=== PATIENT | female | born 1990 | race Caucasian/White ===

== ENCOUNTER 2016-04-14 17:19 | Emergency (ER) | payer MEDICARE, OTHER ==
--- NOTE | 2016-04-14 18:27 | ED ---
Abdominal Pain HPI - General Chief Complaint: Abdominal Pain Stated Complaint: constipation Time Seen by Provider: 04/14/16 18:06 Source: family, RN notes reviewed Mode of arrival: wheelchair Limitations: language barrier, altered mental status, physical limitation - History of Present Illness Initial Comments: Patient's 26-year-old female presents to the emergency room for evaluation of abdominal pain. Patient is a history cerebral palsy. Patient is wheelchair bound and is nonverbal. Patient's father is present with patient. Patient's father states the patient has not had a bowel movement in 5 or more days. Patient's father states the patient appears to be in pain due to not having a bowel movement. Patient's father states the patient does have a history of constipation. Patient's father states he wants to make sure that patient is not constipated. Patient's father denies any fevers. Patient's father states patient is still urinating normally. Patient's father denies any history of bowel obstructions. - Related Data Home Medications Medication Instructions Recorded Confirmed carBAMazepine [TEGretol] 15 ml PO BID 09/08/13 04/14/16 carBAMazepine [TEGretol Susp] 10 ml PO QAM 04/14/16 04/14/16 cloNIDine HCL [Catapres] 0.2 mg PEG/G-TUBE HS 04/14/16 04/14/16 risperiDONE [RisperDAL] 0.5 mg PEG/G-TUBE BID 04/14/16 04/14/16 Allergies Allergy/AdvReac Type Severity Reaction Status Date / Time No Known Allergies Allergy Verified 04/14/16 18:58 Review of Systems ROS Statement: Those systems with pertinent positive or pertinent negative responses have been documented in the HPI. ROS Other: All systems not noted in ROS Statement are negative. Past Medical History Past Medical History: Seizure Disorder Additional Past Medical History / Comment(s): cerebral palsy History of Any Multi-Drug Resistant Organisms: None Reported Additional Past Surgical History / Comment(s): Bilateral AV shunt, peg tube Past Psychological History: No Psychological Hx Reported Smoking Status: Never smoker Past Alcohol Use History: None Reported Past Drug Use History: None Reported General Exam - General Exam Comments Initial Comments: Sitting in exam room, no acute distress. Limitations: language barrier, altered mental status, physical limitation General appearance: alert Head exam: Present: atraumatic, normocephalic, normal inspection Eye exam: Present: normal appearance ENT exam: Present: normal exam Neck exam: Present: normal inspection Respiratory exam: Present: normal lung sounds bilaterally. Absent: respiratory distress Cardiovascular Exam: Present: normal rhythm, tachycardia, normal heart sounds GI/Abdominal exam: Present: soft, normal bowel sounds. Absent: distended, tenderness, guarding, rebound, rigid Extremities exam: Present: normal inspection Neurological exam: Present: altered Skin exam: Present: warm, dry, intact, normal color. Absent: rash Course Vital Signs 04/14/16 04/14/16 04/14/16 17:51 19:57 20:40 Temperature 97.9 F Pulse Rate 145 H 146 H 146 H Respiratory 22 20 Rate Blood Pressure 164/89 142/88 O2 Sat by Pulse 98 98 Oximetry - Reevaluation(s) Reevaluation #1: 04/14/16 19:40 KUB x-ray significant for constipation. Patient will be given molasses enema. Medical Decision Making - Medical Decision Making Patient is a 26-year-old female with history of cerebral palsy presents to emergency room for constipation. KUB x-ray significant for constipation. Patient was given a molasses enema. Patient had a large bowel movement afterwards. Advised patient's father to return for worsening symptoms. Patient 's father states he understands everything that was discussed with him. Case discussed with Dr. Lynn. - Radiology Data Radiology results: report reviewed, image reviewed Disposition Clinical Impression: Constipated Disposition: HOME SELF-CARE Condition: Good Instructions: Constipation (ED), High Fiber Diet (ED) Additional Instructions: Please follow up with primary care provider in 1-2 days. If any new symptom arises, symptoms worsen or fever develops, return to ER as soon as possible. Referrals: Marjan Chakraborty MD [Primary Care Provider] - 1-2 days Time of Disposition: 20:23
--- NOTE | 2016-04-14 19:05 | XR ---
EXAMINATION TYPE: XR KUB DATE OF EXAM: 04/14/2016 6:40 PM COMPARISON: April 09, 2012 HISTORY: Constipation TECHNIQUE: 2 supine views FINDINGS: Chronic dislocation of the right hip noted; this is unchanged when compared the prior study . Visualized lung bases and pleural spaces are negative. There is marked volume of stool within the rectal vault and distal sigmoid. There is a marked volume of pancolonic stool. Catheters are noted. There are no other definite findings on this supine radiographic examination. It is noted that supine radiography cannot exclude pneumoperitoneum. IMPRESSION: MARKED CONSTIPATION.
[2016-04-14 20:40] VITALS: BP 142/88; PULSE 146; RESP 20; TEMP 97.9
== END 2016-04-14 20:40 | disposition home or self-care (01) ==
LOC: EC 17:19
DX: K59.00 Constipation, unspecified (principal); R41.82 Altered mental status, unspecified; R00.0 Tachycardia, unspecified; G40.909 Epilepsy, unspecified, not intractable, without status epilepticus; Z86.69 Personal history of other diseases of the nervous system and sense organs; Z79.899 Other long term (current) drug therapy
CPT/HCPCS: 74000; 99284

== ENCOUNTER 2016-04-17 11:32 | Emergency (ER) | payer MEDICARE, OTHER ==
[2016-04-17] MEDS ORDERED: ACETAMINOPHEN TAB 325 MG TAB PO STA (12:11)
[2016-04-17] MEDS ORDERED: SODIUM CHLORIDE 0.9% 500 ML IV STA (12:11)
[2016-04-17] MEDS ORDERED: ACETAMINOPHEN TAB 325 MG TAB PEG/G-TUBE STA (12:13)
[2016-04-17 13:09] LABS: Basophils # (A) 0.1 k/uL (0-0.2); Basophils % (A) 1 %; CH 31.6; CHCM 33.3; Eosinophils % (A) 0 %; HCT 40.5 % (34.0-46.0); HDW 2.07; HGB 12.8 gm/dL (11.4-16.0); Luc # (Auto) 0.17; Luc % (Auto) 2; Lymphocytes # (A) 1.2 k/uL (1.0-4.8); Lymphocytes % (A) 13 %; MCH 30.2 pg (25.0-35.0); MCHC 31.7 g/dL (31.0-37.0); MCV 95.2 fL (80.0-100.0); Mean Platelet Volume 7.5; Monocytes # (A) 0.6 k/uL (0-1.0); Monocytes % (A) 6 %; Neutrophils # (A) 7.5 k/uL (1.3-7.7); Neutrophils % (A) 78 %; RBC 4.26 m/uL (3.80-5.40); RDW 12.2 % (11.5-15.5); WBC 9.5 k/uL (3.8-10.6); WBC (Perox) 9.91
--- NOTE | 2016-04-17 13:16 | XR ---
EXAMINATION TYPE: XR chest 2V DATE OF EXAM: 04/17/2016 1:12 PM COMPARISON: NONE INDICATION: Fever TECHNIQUE: Frontal and lateral views of the chest are obtained. FINDINGS: The heart size is normal. The pulmonary vasculature is normal. The lungs are clear. Catheters are present overlying the chest. No change is evident IMPRESSION: 1. No acute pulmonary process.
[2016-04-17 13:21] LABS: ALT 39 U/L (9-52); AST 24 U/L (14-36); Alkaline Phosphatase 134 U/L (38-126); Blood Urea Nitrogen 17 mg/dL (7-17); Calcium 9.5 mg/dL (8.4-10.2); Carbon Dioxide 29 mmol/L (22-30); Chloride 100 mmol/L (98-107); Glucose 140 mg/dL (74-99); Non-African American GFR(MDRD) >60 (>60 ml/min/1.73 sqM); Total Bilirubin 0.4 mg/dL (0.2-1.3); Total Protein 7.4 g/dL (6.3-8.2)
[2016-04-17 13:23] LABS: Anion Gap 17 mmol/L; Sodium 146 mmol/L (137-145)
[2016-04-17] MEDS ORDERED: SODIUM CHLORIDE 0.9% 750 ML IV STA (14:36)
[2016-04-17 15:06] LABS: Appearance,Urine Clear (Clear); Bilirubin,Urine Negative (Negative); Glucose,Urine (UA) Negative (Negative); Ketones,Urine Negative (Negative); Leukocyte Esterase,Urine Negative (Negative); Mucus,Urine Rare /hpf; Nitrite,Urine Negative (Negative); Particle Count 1538; Protein,Urine 1+ (Negative); RBC,Urine 2 /hpf (0-5); Specific Gravity,Urine 1.024 (1.001-1.035); Squamous Epithelial Cell,Urine <1 /hpf (0-4); UA Billing (MACRO vs. MICRO) MICRO; WBC,Urine 1 /hpf (0-5)
--- NOTE | 2016-04-17 15:50 | ED ---
Fever HPI - General Chief Complaint: Fever Stated Complaint: fever Time Seen by Provider: 04/17/16 11:50 Source: family Mode of arrival: wheelchair Limitations: physical limitation - History of Present Illness Initial Comments: This patient is a 26-year-old woman with history of cerebral palsy, brought by her family to be evaluated for fever for past couple days and will status change. The patient's father gives the history, as the patient does not speak. He states that she has had a temperature going on for the past night. In addition she has been less active than usual. The patient had been seen here 04/14 and was felt to have some constipation, was given enema did have one bowel movement. MD Complaint: fever, malaise -: days(s) Associated Symptoms: diarrhea Treatments Prior to Arrival: Acetaminophen - Related Data Home Medications Medication Instructions Recorded Confirmed carBAMazepine [TEGretol] 300 ml PO BID@1600,2200 09/08/13 04/17/16 carBAMazepine [TEGretol Susp] 200 mg PO QAM 04/14/16 04/17/16 cloNIDine HCL [Catapres] 0.2 mg PEG/G-TUBE HS 04/14/16 04/17/16 risperiDONE [RisperDAL] 0.5 mg PEG/G-TUBE BID 04/14/16 04/17/16 Allergies Allergy/AdvReac Type Severity Reaction Status Date / Time No Known Allergies Allergy Verified 04/17/16 14:04 Review of Systems ROS Statement: Those systems with pertinent positive or pertinent negative responses have been documented in the HPI. ROS Other: All systems not noted in ROS Statement are negative. Limitations: ROS unobtainable due to patients medical condition Constitutional: Reports: fever ENT: Reports: other ("Frothing at the mouth") Respiratory: Denies: dyspnea Cardiovascular: Denies: syncope Gastrointestinal: Reports: constipation. Denies: vomiting Skin: Denies: rash Past Medical History Past Medical History: Seizure Disorder Additional Past Medical History / Comment(s): cerebral palsy History of Any Multi-Drug Resistant Organisms: None Reported Additional Past Surgical History / Comment(s): Bilateral AV shunt, peg tube Past Psychological History: No Psychological Hx Reported Smoking Status: Never smoker Past Alcohol Use History: None Reported Past Drug Use History: None Reported General Exam Limitations: physical limitation General appearance: alert, cachectic, other (Patient is chronically ill- appearing lady with contractures and with symmetric muscle wasting. She is alert but not able to cooperate with the neurologic exam.) Eye exam: Present: normal appearance. Absent: scleral icterus, conjunctival injection ENT exam: Present: mucous membranes dry Neck exam: Absent: tenderness, meningismus Respiratory exam: Present: normal lung sounds bilaterally, rhonchi. Absent: respiratory distress, wheezes, rales, stridor, accessory muscle use, decreased breath sounds Cardiovascular Exam: Present: normal rhythm, tachycardia, systolic murmur ( Grade 1/6 systolic ejection murmur). Absent: diastolic murmur, rubs, gallop GI/Abdominal exam: Present: soft, rigid, diminished bowel sounds, other (There is a PEG tube in the left upper quadrant.). Absent: tenderness, guarding, rebound Extremities exam: Present: normal capillary refill, other (Lower extremity contractions and symmetric muscle wasting) Back exam: Absent: CVA tenderness (R), CVA tenderness (L) Neurological exam: Present: alert, CN II-XII intact, other (Patient is alert but is non-verbal. Patient not able to cooperate with neurologic exam.). Absent: oriented X3 Skin exam: Present: dry, intact, normal color, other (Skin is hot and dry.). Absent: rash Course Vital Signs 04/17/16 11:35 Temperature 101.6 F H Pulse Rate 133 H Respiratory 18 Rate Blood Pressure 105/71 O2 Sat by Pulse 96 Oximetry Medical Decision Making - Medical Decision Making Patient is a 26-year-old woman with history of cerebral palsy brought to be evaluated for fever and some apparent mental status changes. The workup here does not reveal source of infection. Patient must have a shunt assessment, and I discussed this with patient's father who requested that they be transferred to [facility] where she has previously been seen by Dr. Aureliano Ann, neurosurgeon. Discussed this with the emergency physician there Dr. Willson, who will accept transfer. The patient did receive dose of Rocephin on arrival, as well as IV fluids. - Lab Data Result diagrams: 04/17/16 12:48 04/17/16 12:48 Lab Results 04/17/16 04/17/16 04/17/16 Range/Units 12:48 12:48 12:48 WBC 9.5 (3.8-10.6) k/uL RBC 4.26 (3.80-5.40) m/uL Hgb 12.8 (11.4-16.0) gm/dL Hct 40.5 (34.0-46.0) % MCV 95.2 (80.0-100.0) fL MCH 30.2 (25.0-35.0) pg MCHC 31.7 (31.0-37.0) g/dL RDW 12.2 (11.5-15.5) % Plt Count 521 H (150-450) k/uL Neutrophils % 78 % Lymphocytes % 13 % Monocytes % 6 % Eosinophils % 0 % Basophils % 1 % Neutrophils # 7.5 (1.3-7.7) k/uL Lymphocytes # 1.2 (1.0-4.8) k/uL Monocytes # 0.6 (0-1.0) k/uL Eosinophils # 0.0 (0-0.7) k/uL Basophils # 0.1 (0-0.2) k/uL Sodium 146 H (137-145) mmol/L Potassium 4.0 (3.5-5.1) mmol/L Chloride 100 (98-107) mmol/L Carbon Dioxide 29 (22-30) mmol/L Anion Gap 17 mmol/L BUN 17 (7-17) mg/dL Creatinine 0.61 (0.52-1.04) mg/dL Est GFR (MDRD) Af Amer >60 (>60 ml/min/1.73 sqM) Est GFR (MDRD) Non-Af >60 (>60 ml/min/1.73 sqM) Glucose 140 H (74-99) mg/dL Plasma Lactic Acid Oscar (0.7-2.0) mmol/L Calcium 9.5 (8.4-10.2) mg/dL Total Bilirubin 0.4 (0.2-1.3) mg/dL AST 24 (14-36) U/L ALT 39 (9-52) U/L Alkaline Phosphatase 134 H (38-126) U/L Total Protein 7.4 (6.3-8.2) g/dL Albumin 3.8 (3.5-5.0) g/dL Urine Color Urine Appearance (Clear) Urine pH (5.0-8.0) Ur Specific [place] (1.001-1.035) Urine Protein (Negative) Urine Glucose (UA) (Negative) Urine Ketones (Negative) Urine Blood (Negative) Urine Nitrate (Negative) Urine Bilirubin (Negative) Urine Urobilinogen (<2.0) mg/dL Ur Leukocyte Esterase (Negative) Urine RBC (0-5) /hpf Urine WBC (0-5) /hpf Ur Squamous Epith Cells (0-4) /hpf Urine Mucus (None) /hpf Influenza Type A RNA Not Detected (Not Detectd) Influenza Type B (PCR) Not Detected (Not Detectd) 04/17/16 04/17/16 Range/Units 12:48 14:45 WBC (3.8-10.6) k/uL RBC (3.80-5.40) m/uL Hgb (11.4-16.0) gm/dL Hct (34.0-46.0) % MCV (80.0-100.0) fL MCH (25.0-35.0) pg MCHC (31.0-37.0) g/dL RDW (11.5-15.5) % Plt Count (150-450) k/uL Neutrophils % % Lymphocytes % % Monocytes % % Eosinophils % % Basophils % % Neutrophils # (1.3-7.7) k/uL Lymphocytes # (1.0-4.8) k/uL Monocytes # (0-1.0) k/uL Eosinophils # (0-0.7) k/uL Basophils # (0-0.2) k/uL Sodium (137-145) mmol/L Potassium (3.5-5.1) mmol/L Chloride (98-107) mmol/L Carbon Dioxide (22-30) mmol/L Anion Gap mmol/L BUN (7-17) mg/dL Creatinine (0.52-1.04) mg/dL Est GFR (MDRD) Af Amer (>60 ml/min/1.73 sqM) Est GFR (MDRD) Non-Af (>60 ml/min/1.73 sqM) Glucose (74-99) mg/dL Plasma Lactic Acid Oscar 2.2 H* (0.7-2.0) mmol/L Calcium (8.4-10.2) mg/dL Total Bilirubin (0.2-1.3) mg/dL AST (14-36) U/L ALT (9-52) U/L Alkaline Phosphatase (38-126) U/L Total Protein (6.3-8.2) g/dL Albumin (3.5-5.0) g/dL Urine Color Yellow Urine Appearance Clear (Clear) Urine pH 8.0 (5.0-8.0) Ur Specific [place] 1.024 (1.001-1.035) Urine Protein 1+ H (Negative) Urine Glucose (UA) Negative (Negative) Urine Ketones Negative (Negative) Urine Blood Negative (Negative) Urine Nitrate Negative (Negative) Urine Bilirubin Negative (Negative) Urine Urobilinogen 3.0 (<2.0) mg/dL Ur Leukocyte Esterase Negative (Negative) Urine RBC 2 (0-5) /hpf Urine WBC 1 (0-5) /hpf Ur Squamous Epith Cells <1 (0-4) /hpf Urine Mucus Rare H (None) /hpf Influenza Type A RNA (Not Detectd) Influenza Type B (PCR) (Not Detectd) Disposition Clinical Impression: Fever, Mental status change Disposition: OTHER INSTITUTION NOT DEFINED Condition: Poor Referrals: Marjan Chakraborty MD [Primary Care Provider] - 1-2 days - Out of Hospital Transfer - Req. Specs Out of Hospital Transfer - Requested Specifics: Other Emergency Center
[2016-04-17 16:14] VITALS: BP 117/84; PULSE 136; RESP 20; TEMP 98.9
== END 2016-04-17 16:55 | disposition short-term general hospital (02) ==
LOC: EC 11:32
DX: R50.9 Fever, unspecified (principal); R41.82 Altered mental status, unspecified; R19.7 Diarrhea, unspecified; R53.81 Other malaise; G40.909 Epilepsy, unspecified, not intractable, without status epilepticus; Z86.69 Personal history of other diseases of the nervous system and sense organs; Z79.899 Other long term (current) drug therapy; Z95.828 Presence of other vascular implants and grafts
CPT/HCPCS: 99284; 96365; 96361 ×3; 36415; 80053; 83605; 85025; 81001; 87040; 87086; 87502; 71020; J0696

== ENCOUNTER 2016-08-04 07:37 | Emergency (ER) | payer MEDICARE, OTHER ==
[2016-08-04 07:42] VITALS: BP 112/71; RESP 20
--- NOTE | 2016-08-04 08:42 | XR ---
EXAMINATION TYPE: XR chest 2V DATE OF EXAM: 08/04/2016 HISTORY: cough. REFERENCE: Previous study dated 04/17/2016. FINDINGS: There is a severe rotoscoliosis involving the thoracic spine. There is shunt tubing project ing over the right side of the chest. The lungs are clear. Pleural spaces are clear. Heart size upper limits of normal. IMPRESSION: NO ACUTE INTRATHORACIC ABNORMALITY.
--- NOTE | 2016-08-04 08:57 | ED ---
General Adult HPI - General Chief complaint: Upper Respiratory Infection Stated complaint: SINUS Time Seen by Provider: 08/04/16 08:15 Source: patient, RN notes reviewed, old records reviewed Mode of arrival: wheelchair - History of Present Illness Initial comments: Patient 26-year-old female who has significant past medical history for cerebral palsy, presenting with her father with chief complaint of upper respiratory symptoms over the last 3 days. States that she's had increased cough congestion and rhinorrhea. Denies any fever. States he had similar symptoms was prescribed an antibiotic for. States been no nausea or vomiting. States otherwise acting appropriate for herself with no changes. Does admit to recent [employer] shunt replacement approximately a month ago down through [facility]. Denies any other complaints.Patient denies any recent fever, chills, shortness of breath, chest pain, back pain, nausea or vomiting, hematuria, constipation or diarrhea, or any other complaints. - Related Data Home Medications Medication Instructions Recorded Confirmed carBAMazepine [TEGretol] 300 ml PO BID@1600,2200 09/08/13 08/04/16 carBAMazepine [TEGretol Susp] 200 mg PO QAM 04/14/16 08/04/16 cloNIDine HCL [Catapres] 0.2 mg PEG/G-TUBE HS 04/14/16 08/04/16 risperiDONE [RisperDAL] 0.5 mg PEG/G-TUBE BID 04/14/16 08/04/16 Previous Rx's Medication Instructions Recorded Amoxicillin/Potassium Clav 1 each PO Q12HR #20 tab 08/04/16 [Augmentin 875-125 Tablet] Allergies Allergy/AdvReac Type Severity Reaction Status Date / Time No Known Allergies Allergy Verified 08/04/16 08:26 Review of Systems ROS Statement: Those systems with pertinent positive or pertinent negative responses have been documented in the HPI. ROS Other: All systems not noted in ROS Statement are negative. Past Medical History Past Medical History: Seizure Disorder Additional Past Medical History / Comment(s): cerebral palsy History of Any Multi-Drug Resistant Organisms: None Reported Additional Past Surgical History / Comment(s): Bilateral AV shunt, peg tube Past Psychological History: No Psychological Hx Reported Smoking Status: Never smoker Past Alcohol Use History: None Reported Past Drug Use History: None Reported General Exam - General Exam Comments Initial Comments: General: The patient is awake and alert, in no distress, and does not appear acutely ill. Eye: Pupils are equal, round and reactive to light, extra-ocular movements are intact. No nystagmus. There is normal conjunctiva bilaterally. No signs of icterus. Ears, nose, mouth and throat: There are moist mucous membranes and no oral lesions. Clear rhinorrhea bilaterally. Neck: The neck is supple, there is no tenderness or JVD. Cardiovascular: There is a regular rate and rhythm. No murmur, rub or gallop is appreciated. Respiratory: Lungs are clear to auscultation, respirations are non-labored, breath sounds are equal. No wheezes, stridor, rales, or rhonchi. Gastrointestinal: Abdomen soft on palpation. No apparent tenderness. Musculoskeletal: Normal ROM, no tenderness. Strength 5/5. Sensation intact. Pulses equal bilaterally 2+. Neurological: Patient at baseline per her father at bedside. There are no obvious motor or sensory deficits. Skin: Skin is warm and dry and no rashes or lesions are noted. Course Vital Signs 08/04/16 08/04/16 07:38 08:05 Temperature 97.7 F Pulse Rate 129 H 128 H Respiratory 20 Rate Blood Pressure 112/71 O2 Sat by Pulse 96 100 Oximetry Medical Decision Making - Medical Decision Making Case discussed in detail with attending physician Dr. Nichols. Patient will be covered with antibiotics of Augmentin cover for sinus infection. Chest x-ray is negative for any evidence of pneumonia. Advised close follow-up with family doctor and [facility]. Advised to return if any symptoms increase or worsen or for any other concerns. Disposition Clinical Impression: Acute sinusitis Disposition: HOME SELF-CARE Condition: Good Instructions: Sinusitis (ED) Additional Instructions: Please use medication as discussed. Please follow-up with family doctor in the next 2 days. Please return to emergency room if the symptoms increase or worsen or for any other concerns. Prescriptions: Amoxicillin/Potassium Clav [Augmentin 875-125 Tablet] 1 each PO Q12HR #20 tab Referrals: Marjan Chakraborty MD [Primary Care Provider] - 1-2 days Time of Disposition: 08:49
[2016-08-04 09:12] VITALS: PULSE 127; TEMP 99
== END 2016-08-04 09:12 | disposition home or self-care (01) ==
LOC: EC 07:37
DX: J01.90 Acute sinusitis, unspecified (principal); R05 Cough; G40.909 Epilepsy, unspecified, not intractable, without status epilepticus; Z79.899 Other long term (current) drug therapy
CPT/HCPCS: 71020; 99284

== ENCOUNTER → 2016-10-18 | Outpatient (CLI) | payer MEDICARE, OTHER | END | disposition home or self-care (01) | LOC: LABWHC1 07:53 | PROVIDERS: ATTEND Psychiatry & Neurology Neurology | DX: G40.209 Localization-related (focal) (partial) symptomatic epilepsy and epileptic syndromes with complex partial seizures, not intractable, without status epilepticus (principal) | CPT/HCPCS: 36415; 80156 ==

== ENCOUNTER → 2018-02-15 | Outpatient (CLI) | payer MEDICARE, OTHER ==
[2018-02-15 08:45] LABS: Basophils # (A) 0.1 k/uL (0-0.2); Basophils % (A) 1 %; Eosinophils # (A) 0.2 k/uL (0-0.7); Eosinophils % (A) 3 %; HCT 51.1 % (34.0-46.0); HGB 16.2 gm/dL (11.4-16.0); Lymphocytes # (A) 1.5 k/uL (1.0-4.8); Lymphocytes % (A) 20 %; MCHC 31.8 g/dL (31.0-37.0); MCV 97.5 fL (80.0-100.0); Mean Platelet Volume 6.5; Monocytes # (A) 0.7 k/uL (0-1.0); Monocytes % (A) 9 %; Neutrophils # (A) 4.5 k/uL (1.3-7.7); Neutrophils % (A) 62 %; Platelet Count 381 k/uL (150-450); RBC 5.24 m/uL (3.80-5.40); RDW 12.4 % (11.5-15.5); WBC 7.2 k/uL (3.8-10.6)
[2018-02-15 15:44] LABS: ALT 40 U/L (8-44); AST 29 U/L (13-35); Alkaline Phosphatase 160 U/L (41-126); Bilirubin, Conjugated <0.20 mg/dL (0.20-0.40); Globulin 2.3 g/dL (2.1-3.7); Total Bilirubin 0.1 mg/dL (0.3-1.2); Total Protein 6.9 g/dL (6.2-8.2)
[2018-02-15 16:26] LABS: Carbamazepine (Tegretol) 6.1 ug/mL (4.0-12.0)
[2018-02-15 17:28] LABS: Hemoglobin A1C 5.8 % (4.0-6.0)
== END | disposition home or self-care (01) ==
LOC: LABWHC1 07:18 → EEVIPCON 07:18
PROVIDERS: ATTEND Nurse Practitioner Family
DX: G40.209 Localization-related (focal) (partial) symptomatic epilepsy and epileptic syndromes with complex partial seizures, not intractable, without status epilepticus (principal); T50.905A Adverse effect of unspecified drugs, medicaments and biological substances, initial encounter
CPT/HCPCS: 36415; 80076; 80156; 83036; 84146; 85025

== ENCOUNTER 2020-02-21 18:18 | Emergency (ER) | payer MEDICARE, OTHER ==
[2020-02-21 18:30] VITALS: BP 133/98; PULSE 73; RESP 18; TEMP 98.4
--- NOTE | 2020-02-21 19:25 | ED ---
Abdominal Pain HPI - General Chief Complaint: Abdominal Pain Stated Complaint: bowel problems Time Seen by Provider: 02/21/20 18:38 Source: family Mode of arrival: wheelchair Limitations: altered mental status, physical limitation - History of Present Illness Initial Comments: Patient is a 30-year-old female, history of cerebral palsy, non-verbal, prese nting to the emergency department with her father with complaints of possible constipation. The father states that patient has been agitated over the past week, moaning a little bit more which usually means she is uncomfortable. Father states she has had issues with constipation in the past, her last normal bowel movement was about one week ago. She has been having very small, soft movements over the past week. There has been no fevers, no vomiting. Father states that she acted the same way last time she had constipation. They had tried stool softeners at home without improvement. She does have a PEG tube. There are no further complaints at this time. - Related Data Home Medications Medication Instructions Recorded Confirmed carBAMazepine [TEGretol] 300 ml PEG/G-TUBE BID@1600,2200 09/08/13 02/21/20 carBAMazepine [TEGretol Susp] 200 mg PEG/G-TUBE QAM 04/14/16 02/21/20 risperiDONE [RisperDAL] 0.16 - 0.5 mg PEG/G-TUBE DAILY 04/14/16 02/21/20 ALPRAZolam [Xanax] 0.125 mg PEG/G-TUBE BID PRN 02/21/20 02/21/20 cloNIDine HCL 0.3 mg PEG/G-TUBE HS 02/21/20 02/21/20 Allergies Allergy/AdvReac Type Severity Reaction Status Date / Time No Known Allergies Allergy Verified 02/21/20 19:22 Review of Systems ROS Statement: Those systems with pertinent positive or pertinent negative responses have been documented in the HPI. ROS Other: All systems not noted in ROS Statement are negative. Past Medical History Past Medical History: Seizure Disorder Additional Past Medical History / Comment(s): cerebral palsy History of Any Multi-Drug Resistant Organisms: None Reported Additional Past Surgical History / Comment(s): Bilateral AV shunt, peg tube Past Psychological History: No Psychological Hx Reported Past Alcohol Use History: None Reported Past Drug Use History: None Reported General Exam - General Exam Comments Initial Comments: GENERAL: Patient is well-developed and well-nourished. Patient is nontoxic and in no acute distress. Patient is nonverbal. HEAD: Atraumatic, normocephalic. EYES: Pupils equal round and reactive to light, extraocular movements intact, sclera anicteric, conjunctiva are normal. Eyelids were unremarkable. ENT: TMs normal, nares patent, oropharynx clear without exudates. Moist mucous membranes. NECK: Normal range of motion, supple without lymphadenopathy or JVD. LUNGS: Unlabored respirations. Breath sounds clear to auscultation bilaterally and equal. No wheezes rales or rhonchi. HEART: Regular rate and rhythm without murmurs, rubs or gallops. ABDOMEN: Guarding, soft, nontender, normoactive bowel sounds. No guarding, no rebound. No masses appreciated. : Deferred MUSCULOSKELETAL: History of cerebral palsy, muscle contractures, she is at baseline. No pitting or edema. No clubbing or cyanosis. NEUROLOGICAL: Patient history cerebral palsy, she is nonverbal at baseline. Per father, she is at her normal baseline. PSYCH: Normal mood, normal affect. SKIN: Warm, Dry, normal turgor, no rashes or lesions noted. Limitations: altered mental status, physical limitation Course Vital Signs 02/21/20 18:26 Temperature 98.4 F Pulse Rate 73 Respiratory 18 Rate Blood Pressure 133/98 O2 Sat by Pulse 90 L Oximetry Medical Decision Making - Medical Decision Making Patient is a 30-year-old female with history of cerebral palsy, presenting with her father with complaints of constipation. Patient has normal vitals, afebrile. No vomiting. KUB shows constipation and rectal fecal impaction. Patient was given an enema, she's been having large bowel movements in the ER, her father states that she seems more calm. She is stable for discharge. Other sick continue with stool softeners as well as a laxative until she has a normal bowel movement. He is in agreement this plan of care. She is stable for discharge. Return parameters were discussed with the father and he verbalized understanding. Case discussed with Dr. Mora. Disposition Clinical Impression: Constipation Disposition: HOME SELF-CARE Condition: Stable Instructions (If sedation given, give patient instructions): Constipation (ED) Additional Instructions: Please return to the Emergency Department if symptoms worsen or any other concerns. Continue with stool softener such as MiraLAX daily, may take an additional laxative tomorrow. Follow-up with regular doctor. Is patient prescribed a controlled substance at d/c from ED?: No Referrals: Marjan Chakraborty MD [Primary Care Provider] - 1-2 days
--- NOTE | 2020-02-21 19:43 | XR ---
EXAMINATION TYPE: XR KUB DATE OF EXAM: 02/21/2020 COMPARISON: 04/14/2016 HISTORY: Constipation TECHNIQUE: 2 views supine FINDINGS: There is moderate retained fecal material throughout the colon. There is no evidence of abby e air. Lung bases are clear of consolidation. There is right side ventriculoperitoneal shunt catheter . 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 There are no pathologic calcifications over the kid neys. There is lateral dislocation of the right femoral head. IMPRESSION: Constipation and rectal fecal impaction unchanged.
== END 2020-02-21 21:57 | disposition home or self-care (01) ==
LOC: EC 18:18
DX: K59.00 Constipation, unspecified (principal); G80.9 Cerebral palsy, unspecified; M62.40 Contracture of muscle, unspecified site; G40.909 Epilepsy, unspecified, not intractable, without status epilepticus; Z79.899 Other long term (current) drug therapy; Z95.828 Presence of other vascular implants and grafts
CPT/HCPCS: 74018; 99284

== ENCOUNTER → 2020-07-17 | Outpatient (CLI) | payer MEDICARE, OTHER ==
[2020-07-21 07:40] VITALS: BMI 16.9
== END ==
LOC: DBWHC3 08:42
PROVIDERS: ATTEND Family Medicine
DX: Z78.9 Other specified health status (principal)
CPT/HCPCS: 97802

== ENCOUNTER 2020-08-04 09:03 | Emergency (ER) | payer MEDICARE, OTHER ==
[2020-08-04 09:17] VITALS: RESP 18; TEMP 97
--- NOTE | 2020-08-04 10:15 | ED ---
Abdominal Pain HPI - General Chief Complaint: Abdominal Pain Stated Complaint: constipation Time Seen by Provider: 08/04/20 09:37 Source: patient, family, RN notes reviewed Mode of arrival: wheelchair Limitations: altered mental status - History of Present Illness Initial Comments: This is a 30-year-old female presents emergency Department with caregiver chief complaint of constipation, abdominal issues. Patient's said by 2 feeds, they did have recent switch 2 views which were initially helping with her bowel movements states that she's not on and over one week. They noticed that she can't more irritable when she has issues with constipation. He also noticed some irritation around the site of her PEG tube. He states that last time she was placed on antibiotics and this cleared up. They're also requesting the patient to have antibodies is requesting vaccinating her there are multiple contacts to home that were positive. - Related Data Home Medications Medication Instructions Recorded Confirmed carBAMazepine [TEGretol] 300 ml PEG/G-TUBE BID@1600,2200 09/08/13 08/04/20 carBAMazepine [TEGretol Susp] 200 mg PEG/G-TUBE QAM 04/14/16 08/04/20 risperiDONE [RisperDAL] 0.16 - 0.5 mg PEG/G-TUBE DAILY 04/14/16 08/04/20 ALPRAZolam [Xanax] 0.125 mg PEG/G-TUBE BID PRN 02/21/20 08/04/20 cloNIDine HCL [Catapres] 0.3 mg PEG/G-TUBE HS 02/21/20 08/04/20 Previous Rx's Medication Instructions Recorded Cephalexin [Keflex Susp] 500 mg PO Q8HR #300 ml 08/04/20 Nystatin 100,000 Unit/gm Oint 1 applic TOPICAL TID #15 gm 08/04/20 [Mycostatin Oint] Allergies Allergy/AdvReac Type Severity Reaction Status Date / Time No Known Allergies Allergy Verified 08/04/20 10:22 Review of Systems ROS Statement: Those systems with pertinent positive or pertinent negative responses have been documented in the HPI. ROS Other: All systems not noted in ROS Statement are negative. Past Medical History Past Medical History: Seizure Disorder Additional Past Medical History / Comment(s): cerebral palsy History of Any Multi-Drug Resistant Organisms: None Reported Additional Past Surgical History / Comment(s): Bilateral AV shunt, peg tube Past Psychological History: No Psychological Hx Reported Smoking Status: Never smoker Past Alcohol Use History: None Reported Past Drug Use History: None Reported General Exam Limitations: altered mental status General appearance: alert, in no apparent distress Head exam: Present: atraumatic, normocephalic, normal inspection Respiratory exam: Present: normal lung sounds bilaterally. Absent: respiratory distress, wheezes, rales, rhonchi, stridor Cardiovascular Exam: Present: regular rate, normal rhythm, normal heart sounds. Absent: systolic murmur, diastolic murmur, rubs, gallop, clicks GI/Abdominal exam: Present: soft, rigid, normal bowel sounds. Absent: distended, tenderness, guarding, rebound Neurological exam: Present: alert Course Vital Signs 08/04/20 08/04/20 09:11 10:16 Temperature 97.0 F L Pulse Rate 54 L Respiratory 18 18 Rate Blood Pressure 125/80 O2 Sat by Pulse 99 Oximetry Medical Decision Making - Medical Decision Making 30-year-old presented for constipation x-ray does reveal evidence constipation, was given. Family requested COVID-19 antibiotic testing which was performed. Patient also has some skin irritation may related to bacterial versus fungal around her PEG tube site. Patient placed on antibiotics, topical antifungals and will have close follow-up. - Lab Data Result diagrams: 08/04/20 10:36 08/04/20 10:36 Lab Results 08/04/20 08/04/20 08/04/20 Range/Units 10:36 10:36 10:36 WBC 8.5 (3.8-10.6) k/uL RBC 4.84 (3.80-5.40) m/uL Hgb 15.7 (11.4-16.0) gm/dL Hct 46.5 H (34.0-46.0) % MCV 96.0 (80.0-100.0) fL MCH 32.5 (25.0-35.0) pg MCHC 33.8 (31.0-37.0) g/dL RDW 12.1 (11.5-15.5) % Plt Count 386 (150-450) k/uL MPV 7.1 Neutrophils % 62 % Lymphocytes % 22 % Monocytes % 9 % Eosinophils % 4 % Basophils % 1 % Neutrophils # 5.2 (1.3-7.7) k/uL Lymphocytes # 1.8 (1.0-4.8) k/uL Monocytes # 0.7 (0-1.0) k/uL Eosinophils # 0.3 (0-0.7) k/uL Basophils # 0.1 (0-0.2) k/uL Sodium 142 (137-145) mmol/L Potassium 5.4 H (3.5-5.1) mmol/L Chloride 100 (98-107) mmol/L Carbon Dioxide 36 H (22-30) mmol/L Anion Gap 6 mmol/L BUN 29 H (7-17) mg/dL Creatinine 0.61 (0.52-1.04) mg/dL Est GFR (CKD-EPI)AfAm >90 (>60 ml/min/1.73 sqM) Est GFR (CKD-EPI)NonAf >90 (>60 ml/min/1.73 sqM) Glucose 81 (74-99) mg/dL Calcium 9.6 (8.4-10.2) mg/dL Total Bilirubin 0.5 (0.2-1.3) mg/dL AST 42 H (14-36) U/L ALT 32 (4-34) U/L Alkaline Phosphatase 104 (38-126) U/L Total Protein 7.6 (6.3-8.2) g/dL Albumin 4.6 (3.5-5.0) g/dL Lipase 152 (23-300) U/L Coronavirus (PCR) Not Detected (Not Detectd) Disposition Clinical Impression: Constipation, Skin irritation Disposition: HOME SELF-CARE Condition: Stable Instructions (If sedation given, give patient instructions): Constipation (ED) Additional Instructions: Please return to the Emergency Department if symptoms worsen or any other concerns. Prescriptions: Cephalexin [Keflex Susp] 500 mg PO Q8HR #300 ml Nystatin 100,000 Unit/gm Oint [Mycostatin Oint] 1 applic TOPICAL TID #15 gm Is patient prescribed a controlled substance at d/c from ED?: No Referrals: Marjan Chakraborty MD [Primary Care Provider] - 1-2 days Time of Disposition: 13:21
[2020-08-04 10:47] LABS: Basophils # (A) 0.1 k/uL (0-0.2); Basophils % (A) 1 %; Eosinophils # (A) 0.3 k/uL (0-0.7); Eosinophils % (A) 4 %; HCT 46.5 % (34.0-46.0); HGB 15.7 gm/dL (11.4-16.0); Lymphocytes # (A) 1.8 k/uL (1.0-4.8); Lymphocytes % (A) 22 %; MCH 32.5 pg (25.0-35.0); MCHC 33.8 g/dL (31.0-37.0); Mean Platelet Volume 7.1; Monocytes # (A) 0.7 k/uL (0-1.0); Monocytes % (A) 9 %; Neutrophils # (A) 5.2 k/uL (1.3-7.7); Neutrophils % (A) 62 %; Platelet Count 386 k/uL (150-450); RBC 4.84 m/uL (3.80-5.40); RDW 12.1 % (11.5-15.5); WBC 8.5 k/uL (3.8-10.6)
[2020-08-04 11:01] LABS: ALT 32 U/L (4-34); African American GFR (CKD) >90 (>60 ml/min/1.73 sqM); Anion Gap 6 mmol/L; Blood Urea Nitrogen 29 mg/dL (7-17); Calcium 9.6 mg/dL (8.4-10.2); Carbon Dioxide 36 mmol/L (22-30); Chloride 100 mmol/L (98-107); Glucose 81 mg/dL (74-99); Lipase 152 U/L (23-300); Non-African American GFR(CKD) >90 (>60 ml/min/1.73 sqM); Sodium 142 mmol/L (137-145); Total Bilirubin 0.5 mg/dL (0.2-1.3)
[2020-08-04 11:03] LABS: AST 42 U/L (14-36); Albumin 4.6 g/dL (3.5-5.0); Alkaline Phosphatase 104 U/L (38-126); Potassium 5.4 mmol/L (3.5-5.1); Total Protein 7.6 g/dL (6.3-8.2)
--- NOTE | 2020-08-04 11:16 | XR ---
EXAMINATION TYPE: XR KUB DATE OF EXAM: 08/04/2020 COMPARISON: 02/21/2020 HISTORY: Constipation TECHNIQUE: One view abdominal series FINDINGS: Extensive retained fecal debris throughout the colon. Peritoneal dialysis catheter noted. 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 Scoliosis noted. Suggesti on of possible PEG tube. No definite suspicious calcifications. IMPRESSION: 1. Nonspecific abdomen correlate for constipation and possible fecal impaction.
[2020-08-04 13:33] VITALS: BP 124/94
[2020-08-04 13:34] VITALS: PULSE 100
[2020-08-04] MEDS ORDERED: DOCUSATE 283 MG/5 ML ENEMA RECTAL STA ×2 (13:49)
[2020-08-04] MEDS ORDERED: MAGNESIUM CITRATE 296 ML BOTTLE PO ONE (13:50)
== END 2020-08-04 14:30 | disposition home or self-care (01) ==
LOC: EC 09:03
DX: K59.00 Constipation, unspecified (principal); L98.9 Disorder of the skin and subcutaneous tissue, unspecified
CPT/HCPCS: 36415; 74018; 80053; 83690; 85025; 86769; 87635; 99284

== ENCOUNTER → 2021-05-14 | Outpatient (CLI) | payer MEDICARE, OTHER ==
[2021-05-14 18:34] LABS: Estimated Average Glucose UNC
[2021-05-14 20:19] LABS: ALT 63 U/L (8-44); AST 48 U/L (13-35); African American GFR (CKD) 114.7 (60.0-200.0); Albumin 4.8 g/dL (3.8-4.9); Alkaline Phosphatase 166 U/L (41-126); Bilirubin, Conjugated <0.20 mg/dL (0.20-0.40); Blood Urea Nitrogen 19.2 mg/dL (9.0-27.0); Non-African American GFR(CKD) 98.9 (60.0-200.0); Total Protein 7.8 g/dL (6.2-8.2)
== END | disposition home or self-care (01) ==
LOC: LABWHC1 08:07
PROVIDERS: ATTEND Nurse Practitioner Family
DX: Z79.899 Other long term (current) drug therapy (principal)
CPT/HCPCS: 36415; 80061; 80076; 82565; 83036; 84146; 84439; 84443; 84520; 85025

== ENCOUNTER → 2021-05-14 | Outpatient (CLI) | payer MEDICARE, OTHER | END | disposition home or self-care (01) | LOC: LABWHC1 07:56 | PROVIDERS: ATTEND Psychiatry & Neurology Neurology | DX: G40.209 Localization-related (focal) (partial) symptomatic epilepsy and epileptic syndromes with complex partial seizures, not intractable, without status epilepticus (principal) | CPT/HCPCS: 36415; 80156; 84295 ==

== ENCOUNTER → 2022-03-02 | Outpatient (CLI) | payer MEDICARE, OTHER ==
[2022-03-02 14:41] LABS: Basophils # (A) 0.05 X 10*3/uL (0.00-0.10); Basophils % (A) 0.7 %; Eosinophils # (A) 0.18 X 10*3/uL (0.04-0.35); Eosinophils % (A) 2.7 %; HCT 48.1 % (37.2-46.3); HGB 15.5 g/dL (12.0-15.0); Immature Grans, Automated 0.1 %; Lymphocytes # (A) 1.92 X 10*3/uL (0.90-5.00); Lymphocytes % (A) 28.7 %; MCH 31.1 pg (27.0-32.0); MCHC 32.2 g/dL (32.0-37.0); MCV 96.6 fL (80.0-97.0); Mean Platelet Volume 10.4 fL (9.5-12.2); Monocytes # (A) 0.63 X 10*3/uL (0.20-1.00); Monocytes % (A) 9.4 %; NRBC Per 100 WBC 0 /100 WBCS (0.0-0.0); Neutrophils # (A) 3.89 X 10*3/uL (1.80-7.70); Neutrophils % (A) 58.4 %; Platelet Count 421 X 10*3/uL (140-440); RBC 4.98 X 10*6/uL (4.10-5.20); RDW 12.3 % (11.5-14.5); WBC 6.68 X 10*3/uL (4.50-10.00)
[2022-03-02 15:11] LABS: ALT 47 U/L (8-44); AST 25 U/L (13-35); African American GFR (CKD) 140.8 (60.0-200.0); Albumin 4.8 g/dL (3.8-4.9); Albumin/Globulin Ratio 1.85 (1.60-3.17); Alkaline Phosphatase 166 U/L (41-126); Blood Urea Nitrogen 18.3 mg/dL (9.0-27.0); Calcium 10.2 mg/dL (8.7-10.3); Carbon Dioxide 28.7 mmol/L (20.0-27.5); Chloride 100 mmol/L (96-109); Chol/HDL Ratio 2.41 Ratio; Globulin 2.6 g/dL (1.6-3.3); Glucose 89 mg/dL (70-110); Non-African American GFR(CKD) 121.5 (60.0-200.0); Potassium 5.1 mmol/L (3.5-5.5); Sodium 141 mmol/L (135-145); Total Protein 7.4 g/dL (6.2-8.2)
[2022-03-02 15:44] LABS: Hepatitis B Surface Antigen Nonreactive (Nonreactive); Hepatitis C IgG Antibody Nonreactive (Nonreactive)
[2022-03-02 20:29] LABS: HIV 2 AB Non-Reactive (Non-Reactive); HIV AB P24 Non-Reactive (Non-Reactive); HIV P24 AG Non-Reactive (Non-Reactive)
== END | disposition home or self-care (01) ==
LOC: LABWHC1 07:35
PROVIDERS: ATTEND Family Medicine
DX: Z00.00 Encounter for general adult medical examination without abnormal findings (principal); Z11.59 Encounter for screening for other viral diseases; Z11.4 Encounter for screening for human immunodeficiency virus [HIV]; G40.209 Localization-related (focal) (partial) symptomatic epilepsy and epileptic syndromes with complex partial seizures, not intractable, without status epilepticus; R79.89 Other specified abnormal findings of blood chemistry; R74.8 Abnormal levels of other serum enzymes
CPT/HCPCS: 36415; 80053; 80061; 80156; 84146; 84443; 85025; 86803; 87340; 87390

== ENCOUNTER → 2023-01-27 | Outpatient (CLI) | payer MEDICARE, OTHER ==
[2023-01-27 10:14] LABS: Basophils # (A) 0.1 k/uL (0-0.2); Basophils % (A) 1 %; Eosinophils # (A) 0.1 k/uL (0-0.7); Eosinophils % (A) 2 %; HGB 14.2 gm/dL (11.4-16.0); Hypochromasia Moderate; Lymphocytes # (A) 1.7 k/uL (1.0-4.8); Lymphocytes % (A) 22 %; MCH 32.8 pg (25.0-35.0); MCHC 32.2 g/dL (31.0-37.0); Mean Platelet Volume 8.1; Monocytes # (A) 0.4 k/uL (0-1.0); Monocytes % (A) 5 %; Neutrophils % (A) 67 %; Platelet Count 311 k/uL (150-450); RBC 4.31 m/uL (3.80-5.40); RDW 12.2 % (11.5-15.5); WBC 7.5 k/uL (3.8-10.6)
[2023-01-27 16:45] LABS: ALT 50 U/L (8-44); AST 29 U/L (13-35); Albumin 4.3 g/dL (3.8-4.9); Albumin/Globulin Ratio 1.59 Ratio (1.60-3.17); Alkaline Phosphatase 134 U/L (41-126); Blood Urea Nitrogen 19.5 mg/dL (9.0-27.0); Calcium 9.8 mg/dL (8.7-10.3); Carbon Dioxide 26.2 mmol/L (21.6-31.8); Chloride 103 mmol/L (96-109); Chol/HDL Ratio 2.17 Ratio; Globulin 2.7 g/dL (1.6-3.3); Glucose 111 mg/dL (70-110); LDL Cholesterol,Calculated 59.7 mg/dL (0.0-131.0); Potassium 4.4 mmol/L (3.5-5.5); Sodium 144 mmol/L (135-145); T4, Free (Free Thyroxine) 0.89 ng/dL (0.80-1.80); Total Bilirubin <0.2 mg/dL (0.3-1.2)
== END | disposition home or self-care (01) ==
LOC: LABWHC1 08:29
PROVIDERS: ATTEND Internal Medicine
DX: E55.9 Vitamin D deficiency, unspecified (principal); F73 Profound intellectual disabilities; E22.1 Hyperprolactinemia; Z79.899 Other long term (current) drug therapy
CPT/HCPCS: 36415; 80053; 80061; 82306; 83036; 84146; 84439; 84443; 85025

== ENCOUNTER → 2024-03-21 | Outpatient (CLI) | payer MEDICARE, OTHER ==
--- NOTE | 2024-03-21 11:06 | XR ---
EXAMINATION TYPE: XR chest 2V DATE OF EXAM: 03/21/2024 10:42 AM COMPARISON: Chest radiographs from 04/17/2016 CLINICAL INDICATION: Female, 34 years old with history of R05.1 acute cough; [facility] TECHNIQUE: XR chest 2V Frontal and lateral views of the chest. FINDINGS: Lungs/Pleura: There is no evidence of pleural effusion, focal consolidation, or pneumothorax. Pulmonary vascularity: Unremarkable. Heart/mediastinum: Cardiomediastinal silhouette is unremarkable. Musculoskeletal: No acute osseous pathology. Other findings: Similar tubular high density material extending along the course of what could possib ly be an abandoned catheter along the right neck findings seen on prior dating back to 2016. Lines/Tubes: Ventriculoperitoneal shunt tubing noted along the right aspect of the radiograph. IMPRESSION: 1. No acute cardiopulmonary disease/process. 2. Similar tubular high density material extending along the course of what could possibly be an jean ndoned catheter along the right neck findings seen on prior dating back to 2016. [facility], , 03/21/2024 11:04 AM
== END | disposition home or self-care (01) ==
LOC: RADXRMAIN 10:15
PROVIDERS: ATTEND Family Medicine
DX: R05.1 Acute cough (principal); J98.4 Other disorders of lung
CPT/HCPCS: 71046